=== PATIENT | female | born 1945 | race Caucasian/White ===

== ENCOUNTER 2024-08-17 06:56 | Outpatient (CLI) | payer MEDICARE | END 2024-08-17 06:57 | disposition home or self-care (01) | LOC: CT 06:56 | PROVIDERS: ATTEND Internal Medicine Hematology & Oncology | DX: C50.112 Malignant neoplasm of central portion of left female breast (principal); C79.51 Secondary malignant neoplasm of bone; D71 Functional disorders of polymorphonuclear neutrophils | CPT/HCPCS: 71260; 74177; 78306; A9503 ==

== ENCOUNTER 2024-08-24 08:18 | Day surgery (SDC) | payer MEDICARE ==
[2024-08-24 08:46] LABS: INR-International Normal Ratio 0.9; Prothrombin Time 12.5 sec (12.0-14.7)
[2024-08-24 08:47] LABS: PTT 26.2 sec (22.9-36.1)
[2024-08-24] MEDS ORDERED: Midazolam HCl 2 mg/2 ml Vial ONE (09:36)
[2024-08-24] MEDS ORDERED: fentaNYL 50 mcg/mL 1 mL Vial ONE (09:36)
[2024-08-24] MEDS ORDERED: Lidocaine 1% PF 5 ML VIAL ONE (09:36)
[2024-08-24] MEDS ORDERED: Sodium Bicarbonate 2.5 MEQ/5 ML SDV ONE (09:37)
== END 2024-08-24 13:35 | disposition home or self-care (01) ==
LOC: CT 08:18
PROVIDERS: ATTEND Internal Medicine Hematology & Oncology
PROC: 0QB33ZX Excision of Left Pelvic Bone, Percutaneous Approach, Diagnostic (ICD-10-PCS; principal; 2024-08-24)
DX: C79.51 Secondary malignant neoplasm of bone (principal); C50.112 Malignant neoplasm of central portion of left female breast; E07.9 Disorder of thyroid, unspecified; I10 Essential (primary) hypertension; Z98.51 Tubal ligation status; Z98.890 Other specified postprocedural states; Z98.49 Cataract extraction status, unspecified eye
CPT/HCPCS: 20225; 36415; 77012; 85610; 85730; 88307; 88341; 88342; J2250; J3010